=== PATIENT | male | born 1945 | race Caucasian/White ===

== ENCOUNTER 2020-10-05 19:58 | IRF | payer MEDICARE, SELFPAY ==
--- NOTE | ~2020-10-05 | XR_ITS ---
EXAMINATION: XR chest 1V portable DATE: 10/06/2020 06:00 INDICATION: Rib fracture TECHNIQUE: frontal view of the chest was obtained. COMPARISON: None FINDINGS: Plain screw fixations along the posterior right fourth-ninth ribs. Unfixed old posterior right third rib fracture. Linear discoid atelectasis at the left lung base. Diffuse hazy airspace opacities throu ghout the right lung with additional more bandlike right basilar atelectasis. No pneumothorax or left pleural effusion. Heart size is normal. Calcified left hilar lymph nodes consistent with old granulo matous disease. IMPRESSION: 1. Asymmetric hazy airspace opacity throughout the right lung with differential including small left pleural effusion, atelectasis or pneumonia. 2. Streaky and bandlike bibasilar atelectasis. 3. Multiple old posterior right rib fractures, the majority with plate and screw fixations. Reviewed, dictated and finalized at location A. IMPRESSION: 1. Asymmetric hazy airspace opacity throughout the right lung with differential including small left pleural effusion, atelectasis or pneumonia. 2. Streaky and bandlike bibasilar atelectasis. 3. Multiple old posterior right rib fractures, the majority with plate and scre w fixations.
[2020-10-05 19:48] VITALS: BP 121/74; PULSE 97; RESP 24; TEMP 37.3; O2SAT 97; BMI 34.8
--- NOTE | 2020-10-05 20:06 | ADMGEN ---
Arrived to floor via ambulance at 1948. This patient, Jose Pinto, was admitted to [facility] Room 225-02. Patient/family oriented to hospital policies and general routines including ID bracelet, bed and alarms, visiting hours, pain management, procedures, bathroom and other care routines, personal items, smoking policy, room service/diet, and visiting hours. Information on how to activate the Rapid Response Team has been discussed. Patient/Family are encouraged to report perceived risks to care and to ask questions if they do not understand what they are told or what they should do.
[2020-10-05 20:10] VITALS: BMI 34.3
[2020-10-05 21:52] VITALS: BP 131/74; PULSE 87; RESP 20; TEMP 37.6; O2SAT 96
[2020-10-06] MEDS: ACETAMINOPHEN 500 MG TABLET 1000 MG PO ×5 (00:32→23:42)
[2020-10-06 06:00] VITALS: BP 141/76; PULSE 80; RESP 18; TEMP 36.6; O2SAT 95
[2020-10-06 06:08] LABS: Basophils Absolute Auto 0.1 K/mm3 (0.0-0.1); Basophils Percent Auto 1.6 % (0.2-1.2); Eosinophils Absolute Auto 0.1 K/mm3 (0-0.3); Eosinophils Percent Auto 2.4 % (0-4.4); Hematocrit 28.9 % (42.0-52.0); Hemoglobin 9.2 g/dL (14.0-18.0); Immature Granulocyte Absolute 0.04 K/mm3 (0.00-0.031); Immature Granulocyte Percent A 0.7 % (0-0.5); Lymphocytes Absolute Auto 1.78 K/mm3 (0.9-3.2); Mean Corpuscular HGB Conc 31.8 g/dl (32-36); Mean Corpuscular Hemoglobin 30.1 pg (26-34); Mean Corpuscular Volume 94.4 fl (80-100); Mean Platelet Volume 10.1 fl (7.4-10.4); Monocytes Absolute Auto 0.7 K/mm3 (0.1-0.6); Monocytes Percent Auto 12.9 % (2.6-8.5); Neutrophils Percent Auto 51.4 % (45.5-73.1); Platelet Count Result 237 k/mm3 (150-375); Red Blood Count 3.06 M/mm3 (4.6-6.20); Red Cell Distribution Width 15.5 % (11.5-14.5); White Blood Count 5.8 K/mm3 (4.5-10.0)
[2020-10-06 06:21] LABS: Alanine Aminotransferase 19 U/L (4-50); Albumin Level 3.2 g/dL (3.5-5.1); Alkaline Phosphatase 116 U/L (38-126); Anion Gap 7 mmol/L (8-16); Aspartate Amino Transferase 24 U/L (17-59); Bilirubin,Total 0.3 mg/dL (0.2-1.3); Blood Urea Nitrogen 10 mg/dL (9-20); Calcium 9.3 mg/dL (8.4-10.2); Carbon Dioxide 29 mmol/L (22-30); Chloride 99 mmol/L (98-107); Estimated CRCL calculation 84 ml/min; Estimated Glomerular Filt Rate > 60; Glucose 105 mg/dL (75-110); Potassium 3.7 mmol/L (3.4-5.0); Sodium 135 mmol/L (137-145)
[2020-10-06 08:00] VITALS: PULSE 80; RESP 18; O2SAT 95
--- NOTE | 2020-10-06 08:59 | WPDREHABHP ---
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 Patient was up in the attic and was coming down when he missed a rung on the ladder that was present and fell on another ladder lying on the floor. Patient denies any loss of consciousness or striking his head. Patient was brought to [facility] and found to have multiple rib side fractures and a right hemothorax. Patient was transferred to [facility] the same day for further management. Imaging demonstrated acute fractures of the right 3 through 11 ribs, segmental at the 3rd and 6th through 11th ribs, right lower lobe pulmonary contusions, small pulmonary laceration involving the posterior medial right lower lobe and small right hemo thorax. Hospital [facility] Course: PULMONARY patient underwent on 09/26 ORIF of ribs 5 through 10, VATS procedure, right lung decortication, chest tube placement, intubation, aggressive pulmonary toileting. Patient continued to have a small right pleural effusion on repeat chest x-rays. Patient was able to perform 1 L of incentive spirometry on a regular basis. Patient will follow up with trauma nurse practitioner clinic with chest x-ray in approximately 2 weeks. GI: ILEUS: TX: NG tube placement with resolution and Regular diet. BACTEREMIA: blood cx E coli. 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 Patient was started on Lovenox on 10/02/2020 for 3 months. ACUTE DELIRIUM: HEAD CT showed no acute intracranial abnormality. Patient with sleep deprivation and was placed on Seroquel and ramelteon. ACUTE PAIN: Lidocaine patches, Oxycodone, URINARY RETENTION: Sims catheter was removed and patient had issues with urination hesitancy and retention. Patient was placed on Flomax COVID: The patient has not traveled outside the [place] are had contact with someone who is ill that has traveled outside the [place] in the past 21 days. Patient has not traveled to an area of the [place] that is experiencing no transmission of the Coronavirus and has not had close personal contact with anyone with COVID. Patient does not have a fever nor experiencing lower respiratory illness. Patient received a negative COVID test on 10/05/2020. FALLS The patient reports 1 fall from a ladder prompting this admission. Patient underwent rib plating VATS procedure and lung decortication. Therapy was initiated at the acute care facility and the patient transferred to us from [facility] on 10/05/2020 PRIOR LEVEL OF FUNCTION: Eating was [INDEPENDENT] Oral Care was [INDEPENDENT] Toileting Hygiene was [INDEPENDENT] Shower/Bathing was [INDEPENDENT] Upper Body Dressing was [INDEPENDENT] Lower Body Dressing was [INDEPENDENT] Donning/[place] Footwear was [INDEPENDENT] Rolling Left and Right was [INDEPENDENT] Sit to Lying was [INDEPENDENT] Lying to Sitting was [INDEPENDENT] Sit to Stand was [INDEPENDENT] Bed to Chair Transfers was [INDEPENDENT] Toilet Transfers was [INDEPENDENT] Walking was [INDEPENDENT] [>500 feet] with [NO DEVICE] Wheelchair Mobility was [NOT APPLICABLE PRIOR TO ADMISSION] Stairs were [INDEPENDENT] CURRENT LEVEL OF FUNCTION: Eating was SETUP Oral Care was PARTIAL TO MOD ASSIST Toileting Hygiene was PARTIAL TO MOD ASSIST Shower/Bathing was PARTIAL TO MOD ASSIST Upper
[2020-10-06] MEDS: hydroCHLOROthiazide 25 MG TABLET PO (10:18)
[2020-10-06] MEDS: ASPIRIN 325 MG TABLET PO (10:18)
[2020-10-06] MEDS: PANTOPRAZOLE 40 MG TABLET PO (10:19)
[2020-10-06] MEDS: lisinopriL 20 MG TABLET 40 MG PO (10:19)
[2020-10-06] MEDS: DICLOFENAC SOD 75 MG TABLET.EC PO (10:19)
[2020-10-06] MEDS: THERAPEUTIC MULTIVITAMINS/MINERALS TAB (*BKC) 1 TABLET PO (10:19)
[2020-10-06] MEDS: ENOXAPARIN 100 MG/ML SYRINGE 90 MG SUB-Q ×2 (10:20→20:42)
[2020-10-06] MEDS: SENNA/DOCUSATE SODIUM TABLET 1 TAB PO ×2 (10:21→17:09)
[2020-10-06] MEDS: LIDOCAINE 5% PATCH 3 PATCH TOPICAL (10:21)
[2020-10-06 12:51] VITALS: BMI 34.3
[2020-10-06 14:00] VITALS: BP 143/71; PULSE 84; RESP 20; TEMP 36.7; O2SAT 98
--- NOTE | 2020-10-06 14:19 | RPD ---
INDIVIDUALIZED PLAN OF CARE FOR Jose Pinto Brief Synthesis of Pre-Admission Screen, Post-Admission Evaluation and Therapy Evaluations: The patient presents to rehab with multiple right-sided rib fractures, pulmonary contusion, lung laceration, and right hemothorax status post ORIF of the ribs, VATS, and lung decortication. Comorbidities include acute pain, hypertension, left forearm laceration, penile swelling, GNR bacteremia, hyperlipidemia, and TORREZ. The complexity of the patient's medical management, nursing, and therapy needs require an inpatient rehab hospital stay with a physician-led interdisciplinary team approach. The patient?s needs will be best met in an intensive program vs. at a lower level of care. The patient requires physician services for medical oversight, management of post-op complications (ileus, bacteremia, acute delirium, hypertension, hyperlipidemia, TORREZ) in setting of present comorbidities, and pain management. The patient requires nursing services for anticoagulation therapy, diabetes training, DVT prophylactics, possible IV administration, infection protection, medication management and education, pressure relief, and wound care. Skilled physical and occupational therapy will address ADL training, precaution and safety education, functional mobility, DME education, strengthening, balance, endurance, energy conservation/work simplification training, and family training. Deficits include: ADLs, Balance, Endurance, Family Training/Education, Mobility, Pain Management, ROM, Safety, Strength, and Transfers. Baling Machine Operator/Case Management for: Discharge Planning and Patient/Family Counseling Physical Therapy: 5 days per week for 90 minutes. Treatments may include: Therapeutic Exercise, Gait Training, Neuromuscular Re-education, Transfer Training, Community Reintegration, Bed Mobility, Patient/Family Education, Wheelchair Mobility Group Therapy/Concurrent Therapy Rationales: -Improve attention span during functional activities in a distracted environment. -Enhance problem solving and/or adequate judgment skills during functional activities in a distracted environment. -Promote increased safety awareness in a distracted environment to reduce fall risk with functional tasks, transfers, and ambulation to allow a more safe, self-sufficient return to the home environment. -Improve dynamic balance skills to promote safety and independence with functional activities in a distracted environment for maximum gain. Occupational Therapy: 5 days per week for 90 minutes. Treatments may include: Therapeutic Exercise, Therapeutic Activity, Cognitive Training, Self-Care Transfer Training, Community Reintegration, Home Management, Patient/Family Education, Wheelchair Mobility Training, Energy Conservation Training Group Therapy/Concurrent Therapy Rationales: -Allow therapist to observe and teach generalization and carry-over of skills learned in individual therapy. -Enhance problem solving and sequencing skills during therapeutic activities in a distracted environment. -Promote increased safety awareness in a realistic setting to reduce fall risk with functional tasks due to visual and verbal distractions. -Increase functional level with ADLs, ADL transfers and use of adaptive equipment through therapeutic activities with others while promoting safety to allow a more safe, self-sufficient return home. Medical Prognosis: Good Anticipated Length of Stay: 14 days Rehab Goals: Eating Goal: 06-Independent Oral Hygiene Goal: 06-Independent Toileting Hygiene Goal: 06-Independent Shower/Bathe Self Goal: 06-Independent Upper Body Dressing Goal: 06-Independent Lower Body Dressing Goal: 06-Independent Putting On/Taking Off Footwear Goal: 06-Independent Rolling Left and Right Goal: 06-Independent Sit to Lying Goal: 06-Independent Lying to Sitting on Side of Bed Goal: 06-Independent Sit to Stand Goal: 06-Independent Chair/[id number] Transfer Goal: 06-Indepen
[2020-10-06] MEDS: TAMSULOSIN HCL 0.4 MG CAPSULE PO (17:08)
--- NOTE | 2020-10-06 19:28 | PC.NURSE ---
No open areas noted to buttocks, just redness, mepilex border applied for comfort. continue to monitor.
[2020-10-06] MEDS: MELATONIN 3 MG TABLET PO (20:41)
[2020-10-06 21:06] VITALS: BP 110/60; PULSE 81; RESP 16; TEMP 36.4; O2SAT 98
[2020-10-06 21:54] VITALS: BP 116/66
[2020-10-07] MEDS: ACETAMINOPHEN 500 MG TABLET 1000 MG PO ×4 (05:44→23:25)
[2020-10-07 06:00] VITALS: BP 117/65; PULSE 78; RESP 16; TEMP 36.2; O2SAT 97
[2020-10-07] MEDS: LIDOCAINE 5% PATCH 3 PATCH TOPICAL (09:34)
[2020-10-07] MEDS: ENOXAPARIN 100 MG/ML SYRINGE 90 MG SUB-Q ×2 (09:35→21:22)
[2020-10-07] MEDS: ASPIRIN 325 MG TABLET PO (09:35)
[2020-10-07] MEDS: THERAPEUTIC MULTIVITAMINS/MINERALS TAB (*BKC) 1 TABLET PO (09:36)
[2020-10-07] MEDS: hydroCHLOROthiazide 25 MG TABLET PO (09:36)
[2020-10-07] MEDS: lisinopriL 20 MG TABLET 40 MG PO (09:36)
[2020-10-07] MEDS: SENNA/DOCUSATE SODIUM TABLET 1 TAB PO ×2 (09:36→18:21)
[2020-10-07] MEDS: PANTOPRAZOLE 40 MG TABLET PO (09:36)
--- NOTE | 2020-10-07 10:52 | WPDNEURORHBP ---
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 Patient was up in the attic and was coming down when he missed a rung on the ladder that was present and fell on another ladder lying on the floor. Patient denies any loss of consciousness or striking his head. Patient was brought to [facility] and found to have multiple rib side fractures and a right hemothorax. Patient was transferred to [facility] the same day for further management. Imaging demonstrated acute fractures of the right 3 through 11 ribs, segmental at the 3rd and 6th through 11th ribs, right lower lobe pulmonary contusions, small pulmonary laceration involving the posterior medial right lower lobe and small right hemo thorax. Hospital [facility] Course: PULMONARY patient underwent on 09/26 ORIF of ribs 5 through 10, VATS procedure, right lung decortication, chest tube placement, intubation, aggressive pulmonary toileting. Patient continued to have a small right pleural effusion on repeat chest x-rays. Patient was able to perform 1 L of incentive spirometry on a regular basis. Patient will follow up with trauma nurse practitioner clinic with chest x-ray in approximately 2 weeks. GI: ILEUS: TX: NG tube placement with resolution and Regular diet. BACTEREMIA: blood cx E coli. 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 Patient was started on Lovenox on 10/02/2020 for 3 months. ACUTE DELIRIUM: HEAD CT showed no acute intracranial abnormality. Patient with sleep deprivation and was placed on Seroquel and ramelteon. ACUTE PAIN: Lidocaine patches, Oxycodone, URINARY RETENTION: Sims catheter was removed and patient had issues with urination hesitancy and retention. Patient was placed on Flomax Therapy was initiated at the acute care facility and the patient transferred to us from [facility] on 10/05/2020 patient complains of pain to left back and left leg that resolved over time. Patient complained of minimal right chest pain. Patient stated sleeping was fair Review of Systems Review of Systems: All systems reviewed & are unremarkable except as noted in HPI and below Functional Status Ambulation Ability Ability to Ambulate 10 Feet: Standby Assistance Ability to Ambulate 50 Feet With 2 Turns: Contact Guard Ability to Ambulate 150 Feet: Contact Guard Ambulation Assistive Devices: Walker, Wheeled Transfers Ability Ability to Transfer In/Out of Chair: Standby Assistance Exam Narrative: Exam Narrative: patient is in no acute distress. Patient is resting comfortably. Head is normocephalic. Extraocular muscles are intact. Speech is fluent. Heart rate and rhythm is regular. Lungs are decreased in the right base. Right chest wall reveals marked and significant bruising with numerous incisions and puncture wounds from surgeries. Abdomen is obese. Bilateral upper extremity strength are 4+ out of 5 bilateral lower extremity strength are 4+ out of 5. Deep tendon reflexes are equal bilaterally being 2/4. Sensation is intact to upper and lower extremities. Patient with limited endurance compounded by pain. Objective Data Vital Signs Vital Signs: Vital Signs - 24 hr 10/06/20 14:00 10/06/20 21:06 10/06/20 21:54 Temperature 36.7 C 36.4 C L Pulse Rate 84 81 Respiratory Rate 20 16 Blood Pressure 143/71 H 110/60 116/66 Pulse Oximetry 98 98 10/07/20 06:00 Temperature 36.2 C L Pulse
[2020-10-07 14:00] VITALS: BP 103/59; PULSE 78; RESP 20; TEMP 36.5; O2SAT 99
[2020-10-07] MEDS: TAMSULOSIN HCL 0.4 MG CAPSULE PO (18:21)
[2020-10-07] MEDS: MELATONIN 3 MG TABLET PO (21:22)
[2020-10-07 21:34] VITALS: BP 118/64; PULSE 82; RESP 16; TEMP 36.8; O2SAT 96
[2020-10-08] MEDS: ACETAMINOPHEN 500 MG TABLET 1000 MG PO ×3 (05:36→17:33)
[2020-10-08 06:00] VITALS: BP 110/74; PULSE 94; RESP 16; TEMP 36.1; O2SAT 98
[2020-10-08] MEDS: ENOXAPARIN 100 MG/ML SYRINGE 90 MG SUB-Q ×2 (09:58→21:20)
[2020-10-08] MEDS: LIDOCAINE 5% PATCH 3 PATCH TOPICAL (09:58)
[2020-10-08] MEDS: SENNA/DOCUSATE SODIUM TABLET 1 TAB PO ×2 (09:58→17:34)
[2020-10-08] MEDS: ASPIRIN 325 MG TABLET PO (09:58)
[2020-10-08] MEDS: PANTOPRAZOLE 40 MG TABLET PO (09:59)
[2020-10-08] MEDS: hydroCHLOROthiazide 25 MG TABLET PO (09:59)
[2020-10-08] MEDS: THERAPEUTIC MULTIVITAMINS/MINERALS TAB (*BKC) 1 TABLET PO (09:59)
[2020-10-08] MEDS: lisinopriL 20 MG TABLET 40 MG PO (09:59)
--- NOTE | 2020-10-08 10:46 | PCPTNOTE ---
Jose Pinto was evaluated for a wheeled walker on 10/08/2020 by this physical therapist assistant offset press operator. The wheeled walker will resolve patient's mobility limitations and will be used for ADL's within the home. The patient can safely use the wheeled walker. ?The wheeled walker will resolve the patient?s mobility deficits, including decreased strength, decreased balance, decreased endurance. Autumn Jackson, SPA DIRECTOR/FINANCE
[2020-10-08 14:00] VITALS: PULSE 88; RESP 20; TEMP 36.3; O2SAT 96
[2020-10-08 14:47] VITALS: BP 108/58
[2020-10-08] MEDS: TAMSULOSIN HCL 0.4 MG CAPSULE PO (17:34)
--- NOTE | 2020-10-08 17:36 | WPDNEURORHBP ---
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 Patient was up in the attic and was coming down when he missed a rung on the ladder that was present and fell on another ladder lying on the floor. Patient denies any loss of consciousness or striking his head. Patient was brought to [facility] and found to have multiple rib side fractures and a right hemothorax. Patient was transferred to [facility] the same day for further management. Imaging demonstrated acute fractures of the right 3 through 11 ribs, segmental at the 3rd and 6th through 11th ribs, right lower lobe pulmonary contusions, small pulmonary laceration involving the posterior medial right lower lobe and small right hemo thorax. [facility] Course: PULMONARY patient underwent on 09/26 ORIF of ribs 5 through 10, VATS procedure, right lung decortication, chest tube placement, intubation, aggressive pulmonary toileting. Patient continued to have a small right pleural effusion on repeat chest x-rays. Patient was able to perform 1 L of incentive spirometry on a regular basis. Patient will follow up with trauma nurse practitioner clinic with chest x-ray in approximately 2 weeks. GI: ILEUS: TX: NG tube placement with resolution and Regular diet. BACTEREMIA: blood cx E coli. 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 Patient was started on Lovenox on 10/02/2020 for 3 months. ACUTE DELIRIUM: HEAD CT showed no acute intracranial abnormality. Patient with sleep deprivation and was placed on Seroquel and ramelteon. ACUTE PAIN: Lidocaine patches, Oxycodone, URINARY RETENTION: Sims catheter was removed and patient had issues with urination hesitancy and retention. Patient was placed on Flomax Patient without complaints. Review of Systems Review of Systems: All systems reviewed & are unremarkable except as noted in HPI and below Functional Status Ambulation Ability Ability to Ambulate 10 Feet: Independent Ability to Ambulate 50 Feet With 2 Turns: Independent Ability to Ambulate 150 Feet: Independent Ambulation Assistive Devices: Walker, Wheeled Transfers Ability Ability to Transfer In/Out of Chair: Standby Assistance Exam Narrative: Exam Narrative: patient is in no acute distress. Patient is resting comfortably. Head is normocephalic. Extraocular muscles are intact. Speech is fluent. Heart rate and rhythm is regular. Lungs are decreased in the right base. Right chest wall reveals marked and significant bruising with numerous incisions and puncture wounds from surgeries.One area is draining serosanguineous fluid Abdomen is obese. Bilateral upper extremity strength are 4+ out of 5 bilateral lower extremity strength are 4+ out of 5. Deep tendon reflexes are equal bilaterally being 2/4. Sensation is intact to upper and lower extremities. Patient with limited endurance compounded by pain. Objective Data Vital Signs Vital Signs: Vital Signs - 24 hr 10/07/20 21:34 10/08/20 06:00 10/08/20 14:00 Temperature 36.8 C 36.1 C L 36.3 C L Pulse Rate 82 94 88 Respiratory Rate 16 16 20 Blood Pressure 118/64 110/74 Pulse Oximetry 96 98 96 10/08/20 14:47 Temperature Pulse Rate Respiratory Rate Blood Pressure 108/58 L Pulse Oximetry Intake/Output Intake/Output: Intake & Output 10/05/20 10/06/20 10/07/20 10/08/20 23:59 23:59 23:59 23:59 Intake Total 720 840 480 Balance 720 840 480 Meds/Results Medications: Active Medications Generic Name Dose Route Start Last Admin Trade Name Freq PRN Reason Stop Dose Admin Acetaminophen
[2020-10-08] MEDS: MELATONIN 3 MG TABLET PO (21:20)
[2020-10-08 22:00] VITALS: BP 111/62; PULSE 81; RESP 16; TEMP 36.6; O2SAT 96
[2020-10-09 06:00] VITALS: BP 146/75; PULSE 89; RESP 16; TEMP 36.2; O2SAT 97
[2020-10-09] MEDS: ACETAMINOPHEN 500 MG TABLET 1000 MG PO ×5 (06:09→23:35)
[2020-10-09] MEDS: PANTOPRAZOLE 40 MG TABLET PO (09:00)
[2020-10-09] MEDS: LIDOCAINE 5% PATCH 3 PATCH TOPICAL (09:00)
[2020-10-09] MEDS: SENNA/DOCUSATE SODIUM TABLET 1 TAB PO ×2 (09:00→17:59)
[2020-10-09] MEDS: hydroCHLOROthiazide 25 MG TABLET PO (09:00)
[2020-10-09] MEDS: THERAPEUTIC MULTIVITAMINS/MINERALS TAB (*BKC) 1 TABLET PO (09:00)
[2020-10-09] MEDS: lisinopriL 20 MG TABLET 40 MG PO (09:00)
[2020-10-09] MEDS: ASPIRIN 325 MG TABLET PO (09:00)
[2020-10-09] MEDS: ENOXAPARIN 100 MG/ML SYRINGE 90 MG SUB-Q ×2 (09:00→21:11)
--- NOTE | 2020-10-09 09:18 | WPDNEURORHBP ---
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 Patient was up in the attic and was coming down when he missed a rung on the ladder that was present and fell on another ladder lying on the floor. Patient denies any loss of consciousness or striking his head. Patient was brought to [facility] and found to have multiple rib side fractures and a right hemothorax. Patient was transferred to [facility] the same day for further management. Imaging demonstrated acute fractures of the right 3 through 11 ribs, segmental at the 3rd and 6th through 11th ribs, right lower lobe pulmonary contusions, small pulmonary laceration involving the posterior medial right lower lobe and small right hemo thorax. Hospital [facility] Course: PULMONARY patient underwent on 09/26 ORIF of ribs 5 through 10, VATS procedure, right lung decortication, chest tube placement, intubation, aggressive pulmonary toileting. Patient continued to have a small right pleural effusion on repeat chest x-rays. Patient was able to perform 1 L of incentive spirometry on a regular basis. Patient will follow up with trauma nurse practitioner clinic with chest x-ray in approximately 2 weeks. GI: ILEUS: TX: NG tube placement with resolution and Regular diet. BACTEREMIA: blood cx E coli. 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 Patient was started on Lovenox on 10/02/2020 for 3 months. ACUTE DELIRIUM: HEAD CT showed no acute intracranial abnormality. Patient with sleep deprivation and was placed on Seroquel and ramelteon. ACUTE PAIN: Lidocaine patches, Oxycodone, URINARY RETENTION: Sims catheter was removed and patient had issues with urination hesitancy and retention. Patient was placed on Flomax REHAB HOSPITAL COURSE: patient is doing well. Patient still complains of sacral pain. Mepilex has been added. Patient reminded to use incentive spirometry every 2 hours while awake Review of Systems Review of Systems: All systems reviewed & are unremarkable except as noted in HPI and below Functional Status Ambulation Ability Ability to Ambulate 10 Feet: Independent Ability to Ambulate 50 Feet With 2 Turns: Independent Ability to Ambulate 150 Feet: Independent Ambulation Assistive Devices: Walker, Wheeled Transfers Ability Ability to Transfer In/Out of Chair: Standby Assistance Exam Narrative: Exam Narrative: patient is in no acute distress. Patient is resting comfortably. Head is normocephalic. Extraocular muscles are intact. Speech is fluent. Heart rate and rhythm is regular. Lungs are decreased in the right base. Right chest wall reveals marked and significant bruising with numerous incisions and puncture wounds from surgeries.One area is draining serosanguineous fluid Abdomen is obese. Bilateral upper extremity strength are 4+ out of 5 bilateral lower extremity strength are 4+ out of 5. Deep tendon reflexes are equal bilaterally being 2/4. Sensation is intact to upper and lower extremities. Patient with limited endurance compounded by pain. Sacral redness is resolving . No pain on exam. Incisions and drain sites on chest healing. No drainage. Objective Data Vital Signs Vital Signs: Vital Signs - 24 hr 10/08/20 14:00 10/08/20 14:47 10/08/20 22:00 Temperature 36.3 C L 36.6 C Pulse Rate 88 81 Respiratory Rate 20 16 Blood Pressure 108/58 L 111/62 Pulse Oximetry 96 96 10/09/20 06:00 Temperature 36.2 C L Pulse Rate 89 Respiratory Rate 16 Blood Pressure 146/75 H Pulse Oximetry 97 Intake/Output Intake/Output: Intake &
[2020-10-09 14:00] VITALS: BP 104/59; PULSE 81; RESP 18; TEMP 36.5; O2SAT 97
[2020-10-09] MEDS: TAMSULOSIN HCL 0.4 MG CAPSULE PO (17:59)
[2020-10-09] MEDS: MELATONIN 5 MG TABLET PO (21:11)
[2020-10-09 21:49] VITALS: BP 126/71; PULSE 87; RESP 18; TEMP 36.6; O2SAT 97
[2020-10-10 05:54] VITALS: BP 126/66; PULSE 80; RESP 16; TEMP 36.2; O2SAT 96
[2020-10-10] MEDS: ACETAMINOPHEN 500 MG TABLET 1000 MG PO ×4 (06:06→23:18)
--- NOTE | 2020-10-10 07:52 | WPDNEURORHBP ---
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 Patient was up in the attic and was coming down when he missed a rung on the ladder that was present and fell on another ladder lying on the floor. Patient denies any loss of consciousness or striking his head. Patient was brought to [facility] and found to have multiple rib side fractures and a right hemothorax. Patient was transferred to [facility] the same day for further management. Imaging demonstrated acute fractures of the right 3 through 11 ribs, segmental at the 3rd and 6th through 11th ribs, right lower lobe pulmonary contusions, small pulmonary laceration involving the posterior medial right lower lobe and small right hemo thorax. [facility] Course: PULMONARY patient underwent on 09/26 ORIF of ribs 5 through 10, VATS procedure, right lung decortication, chest tube placement, intubation, aggressive pulmonary toileting. Patient continued to have a small right pleural effusion on repeat chest x-rays. Patient was able to perform 1 L of incentive spirometry on a regular basis. Patient will follow up with trauma nurse practitioner clinic with chest x-ray in approximately 2 weeks. GI: ILEUS: TX: NG tube placement with resolution and Regular diet. BACTEREMIA: blood cx E coli. 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 Patient was started on Lovenox on 10/02/2020 for 3 months. ACUTE DELIRIUM: HEAD CT showed no acute intracranial abnormality. Patient with sleep deprivation and was placed on Seroquel and ramelteon. ACUTE PAIN: Lidocaine patches, Oxycodone, URINARY RETENTION: Sims catheter was removed and patient had issues with urination hesitancy and retention. Patient was placed on Flomax [facility] COURSE: patient is doing well. Patient still complains of insomnia. Will discontinue Melatonin and add Ambien low dose. Patient reminded to use incentive spirometry every 2 hours while awake Review of Systems Review of Systems: All systems reviewed & are unremarkable except as noted in HPI and below Functional Status Ambulation Ability Ability to Ambulate 10 Feet: Independent Ability to Ambulate 50 Feet With 2 Turns: Independent Ability to Ambulate 150 Feet: Independent Ambulation Assistive Devices: Walker, Wheeled Transfers Ability Ability to Transfer In/Out of Chair: Standby Assistance Exam Narrative: Exam Narrative: patient is in no acute distress. Patient is resting comfortably. Head is normocephalic. Extraocular muscles are intact. Speech is fluent. Heart rate and rhythm is regular. Lungs are decreased in the right base. Right chest wall reveals marked and significant bruising with numerous incisions and puncture wounds from surgeries.One area is draining serosanguineous fluid Abdomen is obese. Bilateral upper extremity strength are 4+ out of 5 bilateral lower extremity strength are 4+ out of 5. Deep tendon reflexes are equal bilaterally being 2/4. Sensation is intact to upper and lower extremities. Patient with limited endurance compounded by pain. Sacral redness is resolving . No pain on exam. Incisions and drain sites on chest healing. No drainage. Objective Data Vital Signs Vital Signs: Vital Signs - 24 hr 10/09/20 14:00 10/09/20 21:49 10/10/20 05:54 Temperature 36.5 C 36.6 C 36.2 C L Pulse Rate 81 87 80 Respiratory Rate 18 18 16 Blood Pressure 104/59 L 126/71 126/66 Pulse Oximetry 97 97 96 Intake/Output Intake/Output: Intake & Output 10/07/20 10/08/20 10/09/20 10/10/20 23:59 23:59 23:59 23:59 In
[2020-10-10] MEDS: ENOXAPARIN 100 MG/ML SYRINGE 90 MG SUB-Q ×2 (09:24→21:57)
[2020-10-10] MEDS: ASPIRIN 325 MG TABLET PO (09:24)
[2020-10-10] MEDS: hydroCHLOROthiazide 25 MG TABLET PO (09:25)
[2020-10-10] MEDS: LIDOCAINE 5% PATCH 3 PATCH TOPICAL (09:25)
[2020-10-10] MEDS: lisinopriL 20 MG TABLET 40 MG PO (09:25)
[2020-10-10] MEDS: THERAPEUTIC MULTIVITAMINS/MINERALS TAB (*BKC) 1 TABLET PO (09:26)
[2020-10-10] MEDS: PANTOPRAZOLE 40 MG TABLET PO (09:26)
[2020-10-10 13:57] VITALS: BP 104/49; PULSE 77; RESP 18; TEMP 36.3; O2SAT 98
[2020-10-10] MEDS: DICLOFENAC SOD 75 MG TABLET.EC PO (15:13)
[2020-10-10] MEDS: TAMSULOSIN HCL 0.4 MG CAPSULE PO (17:39)
[2020-10-10 21:38] VITALS: BP 108/64; PULSE 83; RESP 16; TEMP 36.5; O2SAT 97
[2020-10-10] MEDS: ZOLPIDEM TARTRATE (*CRX) 2.5 MG TABLET PO (21:57)
[2020-10-11 06:00] VITALS: BP 136/86; PULSE 91; RESP 16; TEMP 36.4; O2SAT 98
[2020-10-11] MEDS: ACETAMINOPHEN 500 MG TABLET 1000 MG PO ×4 (06:09→23:33)
[2020-10-11] MEDS: LIDOCAINE 5% PATCH 3 PATCH TOPICAL (08:13)
[2020-10-11] MEDS: lisinopriL 20 MG TABLET 40 MG PO (08:14)
[2020-10-11] MEDS: THERAPEUTIC MULTIVITAMINS/MINERALS TAB (*BKC) 1 TABLET PO (08:14)
[2020-10-11] MEDS: ASPIRIN 325 MG TABLET PO (08:14)
[2020-10-11] MEDS: PANTOPRAZOLE 40 MG TABLET PO (08:14)
[2020-10-11] MEDS: hydroCHLOROthiazide 25 MG TABLET PO (08:14)
[2020-10-11] MEDS: ENOXAPARIN 100 MG/ML SYRINGE 90 MG SUB-Q (08:15)
[2020-10-11] MEDS: DICLOFENAC SOD 75 MG TABLET.EC PO (08:16)
--- NOTE | 2020-10-11 09:16 | WPDNEURORHBP ---
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 Patient was up in the attic and was coming down when he missed a rung on the ladder that was present and fell on another ladder lying on the floor. Patient denies any loss of consciousness or striking his head. Patient was brought to [facility] and found to have multiple rib side fractures and a right hemothorax. Patient was transferred to [facility] the same day for further management. Imaging demonstrated acute fractures of the right 3 through 11 ribs, segmental at the 3rd and 6th through 11th ribs, right lower lobe pulmonary contusions, small pulmonary laceration involving the posterior medial right lower lobe and small right hemo thorax. Hospital [facility] Course: PULMONARY patient underwent on 09/26 ORIF of ribs 5 through 10, VATS procedure, right lung decortication, chest tube placement, intubation, aggressive pulmonary toileting. Patient continued to have a small right pleural effusion on repeat chest x-rays. Patient was able to perform 1 L of incentive spirometry on a regular basis. Patient will follow up with trauma nurse practitioner clinic with chest x-ray in approximately 2 weeks. GI: ILEUS: TX: NG tube placement with resolution and Regular diet. BACTEREMIA: blood cx E coli. 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 Patient was started on Lovenox on 10/02/2020 for 3 months. ACUTE DELIRIUM: HEAD CT showed no acute intracranial abnormality. Patient with sleep deprivation and was placed on Seroquel and ramelteon. ACUTE PAIN: Lidocaine patches, Oxycodone, URINARY RETENTION: Sims catheter was removed and patient had issues with urination hesitancy and retention. Patient was placed on Flomax [facility]PITAL COURSE: patient is doing well. Patient still complains of insomnia. Will discontinue Melatonin and add Ambien low dose. Patient reminded to use incentive spirometry every 2 hours while awake 10/11/20 Patient slept better on Ambien low dose. He would like to increase the dose for tonight. Patient is doing better with all therapies. Consider discharge soon Review of Systems Review of Systems: All systems reviewed & are unremarkable except as noted in HPI and below Functional Status Ambulation Ability Ability to Ambulate 10 Feet: Independent Ability to Ambulate 50 Feet With 2 Turns: Independent Ability to Ambulate 150 Feet: Independent Ambulation Assistive Devices: Walker, Wheeled Transfers Ability Ability to Transfer In/Out of Chair: Independent Exam Narrative: Exam Narrative: patient is in no acute distress. P Head is normocephalic. Extraocular muscles are intact. Speech is fluent. Heart rate and rhythm is regular. Lungs are decreased in the right base. Abdomen is obese. Bilateral upper extremity strength are 4+ out of 5 bilateral lower extremity strength are 4+ out of 5. Deep tendon reflexes are equal bilaterally being 2/4. Sensation is intact to upper and lower extremities. Patient with limited endurance compounded by pain. Sacral redness is resolving . Incisions and drain sites on chest healing. No drainage. Objective Data Vital Signs Vital Signs: Vital Signs - 24 hr 10/10/20 13:57 10/10/20 21:38 10/11/20 06:00 Temperature 36.3 C L 36.5 C 36.4 C L Pulse Rate 77 83 91 Respiratory Rate 18 16 16 Blood Pressure 104/49 L 108/64 136/86 Pulse Oximetry 98 97 98 Intake/Output Intake/Output: Intake & Output 10/08/20 10/09/20 10/10/20 10/11/20 23:59 23:59 23:59 23:59 Intake Total 720 720 720 360 Balance 720 720 720 3
[2020-10-11 14:00] VITALS: BP 96/55; PULSE 86; RESP 20; TEMP 36.5; O2SAT 97
[2020-10-11] MEDS: TAMSULOSIN HCL 0.4 MG CAPSULE PO (17:21)
[2020-10-11] MEDS: APIXABAN 5 MG TABLET PO (20:54)
[2020-10-11] MEDS: ZOLPIDEM TARTRATE (*CRX) 5 MG TABLET PO (20:55)
[2020-10-11 22:00] VITALS: BP 136/75; PULSE 80; RESP 18; TEMP 36.3; O2SAT 97
[2020-10-12] MEDS: ACETAMINOPHEN 500 MG TABLET 1000 MG PO ×4 (05:29→23:38)
[2020-10-12 06:00] VITALS: BP 128/74; PULSE 85; RESP 18; TEMP 36.2; O2SAT 97
[2020-10-12] MEDS: lisinopriL 20 MG TABLET 40 MG PO (09:00)
[2020-10-12] MEDS: ASPIRIN 81 MG CHEWABLE TABLET PO (09:00)
[2020-10-12] MEDS: THERAPEUTIC MULTIVITAMINS/MINERALS TAB (*BKC) 1 TABLET PO (09:00)
[2020-10-12] MEDS: LIDOCAINE 5% PATCH 3 PATCH TOPICAL (09:00)
[2020-10-12] MEDS: hydroCHLOROthiazide 25 MG TABLET PO (09:00)
[2020-10-12] MEDS: PANTOPRAZOLE 40 MG TABLET PO (09:00)
[2020-10-12] MEDS: APIXABAN 5 MG TABLET PO ×2 (09:00→20:54)
--- NOTE | 2020-10-12 10:42 | WPDNEURORHBP ---
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 Patient was up in the attic and was coming down when he missed a rung on the ladder that was present and fell on another ladder lying on the floor. Patient denies any loss of consciousness or striking his head. Patient was brought to [facility] and found to have multiple rib side fractures and a right hemothorax. Patient was transferred to [facility] the same day for further management. Imaging demonstrated acute fractures of the right 3 through 11 ribs, segmental at the 3rd and 6th through 11th ribs, right lower lobe pulmonary contusions, small pulmonary laceration involving the posterior medial right lower lobe and small right hemo thorax. Hospital [facility] Course: PULMONARY patient underwent on 09/26 ORIF of ribs 5 through 10, VATS procedure, right lung decortication, chest tube placement, intubation, aggressive pulmonary toileting. Patient continued to have a small right pleural effusion on repeat chest x-rays. Patient was able to perform 1 L of incentive spirometry on a regular basis. Patient will follow up with trauma nurse practitioner clinic with chest x-ray in approximately 2 weeks. GI: ILEUS: TX: NG tube placement with resolution and Regular diet. BACTEREMIA: blood cx E coli. 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 Patient was started on Lovenox on 10/02/2020 for 3 months. ACUTE DELIRIUM: HEAD CT showed no acute intracranial abnormality. Patient with sleep deprivation and was placed on Seroquel and ramelteon. ACUTE PAIN: Lidocaine patches, Oxycodone, URINARY RETENTION: Sims catheter was removed and patient had issues with urination hesitancy and retention. Patient was placed on Flomax REHAB [facility]OSPITAL COURSE: patient is doing well. Patient still complains of insomnia. Will discontinue Melatonin and add Ambien low dose. Patient reminded to use incentive spirometry every 2 hours while awake 10/11/20 Patient slept better on Ambien low dose. He would like to increase the dose for tonight. Patient is doing better with all therapies. Consider discharge soon 10/12/2020 patient was seen in the physical therapy gym. Patient appeared drowsy. Will discontinue the Ambien. Patient looking forward to discharging tomorrow and feels ready for discharge. Review of Systems Review of Systems: All systems reviewed & are unremarkable except as noted in HPI and below Functional Status Ambulation Ability Ability to Ambulate 10 Feet: Independent Ability to Ambulate 50 Feet With 2 Turns: Independent Ability to Ambulate 150 Feet: Independent Ambulation Assistive Devices: Walker, Wheeled Transfers Ability Ability to Transfer In/Out of Chair: Independent Exam Narrative: Exam Narrative: patient is in no acute distress. Head is normocephalic. Extraocular muscles are intact. Speech is fluent. Heart rate and rhythm is regular. Lungs are decreased in the right base. Abdomen is obese. Bilateral upper extremity strength are 4+ out of 5 bilateral lower extremity strength are 4+ out of 5. Deep tendon reflexes are equal bilaterally being 2/4. Sensation is intact to upper and lower extremities. Patient with limited endurance compounded by pain. Sacral redness is resolving . Incisions and drain sites on chest healing. No drainage. Objective Data Vital Signs Vital Signs: Vital Signs - 24 hr 10/11/20 14:00 10/11/20 22:00 10/12/20 06:00 Temperature 36.5 C 36.3 C L 36.2 C L Pulse Rate 86 80 85 Respiratory Rate 20 18 18 Blood Pressure 96/55 L 136/75 128/74
[2020-10-12 14:00] VITALS: BP 109/69; PULSE 95; RESP 24; TEMP 36.2; O2SAT 97
[2020-10-12] MEDS: TAMSULOSIN HCL 0.4 MG CAPSULE PO (17:39)
[2020-10-12] MEDS: SENNA/DOCUSATE SODIUM TABLET 1 TAB PO (17:39)
[2020-10-12 21:53] VITALS: BP 123/80; PULSE 87; RESP 18; TEMP 36.7; O2SAT 94
[2020-10-13 05:06] LABS: Basophils Absolute Auto 0.1 K/mm3 (0.0-0.1); Basophils Percent Auto 1.4 % (0.2-1.2); Eosinophils Absolute Auto 0.3 K/mm3 (0-0.3); Hematocrit 29.7 % (42.0-52.0); Hemoglobin 9.4 g/dL (14.0-18.0); Immature Granulocyte Absolute 0.08 K/mm3 (0.00-0.031); Immature Granulocyte Percent A 1.3 % (0-0.5); Lymphocytes Absolute Auto 2.18 K/mm3 (0.9-3.2); Lymphocytes Percent Auto 34.5 % (18.3-44.2); Mean Corpuscular HGB Conc 31.6 g/dl (32-36); Mean Corpuscular Hemoglobin 29.6 pg (26-34); Mean Corpuscular Volume 93.4 fl (80-100); Mean Platelet Volume 9.3 fl (7.4-10.4); Monocytes Absolute Auto 0.6 K/mm3 (0.1-0.6); Monocytes Percent Auto 8.7 % (2.6-8.5); Neutrophils Absolute Auto 3.2 K/mm3 (1.3-6.7); Neutrophils Percent Auto 50.1 % (45.5-73.1); Platelet Count Result 214 k/mm3 (150-375); Red Blood Count 3.18 M/mm3 (4.6-6.20); Red Cell Distribution Width 15.8 % (11.5-14.5); White Blood Count 6.3 K/mm3 (4.5-10.0)
[2020-10-13 05:21] LABS: Alanine Aminotransferase 22 U/L (4-50); Albumin Level 3.5 g/dL (3.5-5.1); Alkaline Phosphatase 106 U/L (38-126); Anion Gap 10 mmol/L (8-16); Aspartate Amino Transferase 32 U/L (17-59); Bilirubin,Total 0.3 mg/dL (0.2-1.3); Blood Urea Nitrogen 11 mg/dL (9-20); Calcium 9.3 mg/dL (8.4-10.2); Carbon Dioxide 28 mmol/L (22-30); Chloride 99 mmol/L (98-107); Estimated CRCL calculation 84 ml/min; Estimated Glomerular Filt Rate > 60; Glucose 101 mg/dL (75-110); Potassium 3.8 mmol/L (3.4-5.0); Sodium 137 mmol/L (137-145)
[2020-10-13] MEDS: ACETAMINOPHEN 500 MG TABLET 1000 MG PO (05:41)
[2020-10-13 06:00] VITALS: BP 132/75; PULSE 80; RESP 18; TEMP 36.4; O2SAT 95
[2020-10-13] MEDS: SENNA/DOCUSATE SODIUM TABLET 1 TAB PO (09:06)
[2020-10-13] MEDS: hydroCHLOROthiazide 25 MG TABLET PO (09:06)
[2020-10-13] MEDS: APIXABAN 5 MG TABLET PO (09:06)
[2020-10-13] MEDS: ASPIRIN 81 MG CHEWABLE TABLET PO (09:06)
[2020-10-13] MEDS: PANTOPRAZOLE 40 MG TABLET PO (09:07)
[2020-10-13] MEDS: lisinopriL 20 MG TABLET 40 MG PO (09:07)
[2020-10-13] MEDS: LIDOCAINE 5% PATCH 3 PATCH TOPICAL (09:07)
[2020-10-13] MEDS: THERAPEUTIC MULTIVITAMINS/MINERALS TAB (*BKC) 1 TABLET PO (09:07)
--- NOTE | 2020-10-13 12:47 | PM.DS ---
DS: Admitting Diagnosis Admitting Diagnosis Admitting Diagnosis: fall from ladder sustaining rib fx. DS: Discharge Diagnosis Discharge Diagnosis (1) Left leg DVT: Code(s): I82.402 - Acute embolism and thrombosis of unspecified deep veins of left lower extremity Status: Acute Assessment and Plan: Lovenox 90 mg q.12 hours adjusted for weight. Patient wishes to go home on Eliquis 5 mg b.i.d. (2) History of bacteremia: Code(s): Z87.898 - Personal history of other specified conditions Status: Acute Assessment and Plan: continue to follow (3) History of ileus: Code(s): Z87.19 - Personal history of other diseases of the digestive system Status: Acute Assessment and Plan: continue bowel program (4) Pleural effusion, right: Code(s): J90 - Pleural effusion, not elsewhere classified Status: Acute Assessment and Plan: continue incentive spirometry with baseline chest x-ray obtained (5) Hemothorax, right: Code(s): J94.2 - Hemothorax Status: Acute Assessment and Plan: continue to monitor (6) Right rib fracture: Code(s): S22.31XA - Fracture of one rib, right side, initial encounter for closed fracture Status: Acute Assessment and Plan: ORIF of right ribs secondary to flail chest. (7) Urinary retention: Code(s): R33.9 - Retention of urine, unspecified Status: Acute Assessment and Plan: Flomax (8) TORREZ (nonalcoholic steatohepatitis): Code(s): K75.81 - Nonalcoholic steatohepatitis (TORREZ) Status: Acute Assessment and Plan: monitor (9) Hyperlipidemia: Code(s): E78.5 - Hyperlipidemia, unspecified Status: Acute (10) Hypertension: Code(s): I10 - Essential (primary) hypertension Status: Acute Assessment and Plan: lisinopril 40 mg daily (11) Pulmonary laceration: Code(s): S27.339A - Laceration of lung, unspecified, initial encounter Status: Acute Assessment and Plan: lung decortication, vats procedure (12) Pulmonary contusion: Code(s): S27.329A - Contusion of lung, unspecified, initial encounter Status: Acute Assessment and Plan: monitor (13) Sacral pressure sore: Code(s): L89.159 - Pressure ulcer of sacral region, unspecified stage Status: Acute Assessment and Plan: Add Mepilex. This area was noted on admission. NO open area. (14) Insomnia: Code(s): G47.00 - Insomnia, unspecified Status: Acute Assessment and Plan: Melatonin was ineffective. Will add Ambien and increase dose. Ambien at 5 mg caused morning drowsiness. 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 Patient was up in the attic and was coming down when he missed a rung on the ladder that was present and fell on another ladder lying on the floor. Patient denies any loss of consciousness or striking his head. Patient was brought to [facility] and found to have multiple rib side fractures and a right hemothorax. Patient was transferred to [facility] the same day for further management. Imaging demonstrated acute fractures of the right 3 through 11 ribs, segmental at the 3rd and 6th through 11th ribs, right lower lobe pulmonary contusions, small pulmonary laceration involving the posterior medial right lower lobe and small right hemo thorax. Hospital [facility] Course: PULMONARY patient underwent on 09/26 ORIF of ribs 5 through 10, VATS p
== END 2020-10-13 11:00 | disposition home or self-care (01) | DRG 950 ==
PROVIDERS: Admitting Provider Physical Medicine & Rehabilitation; PCP Family Medicine; Visit Provider Physical Medicine & Rehabilitation
DX: S27.331D Laceration of lung, unilateral, subsequent encounter (principal); S22.5XXD Flail chest, subsequent encounter for fracture with routine healing; S27.1XXD Traumatic hemothorax, subsequent encounter; W11.XXXD Fall on and from ladder, subsequent encounter; E78.5 Hyperlipidemia, unspecified; G47.00 Insomnia, unspecified; I10 Essential (primary) hypertension; I82.562 Chronic embolism and thrombosis of left calf muscular vein; K75.81 Nonalcoholic steatohepatitis (NASH); L89.159 Pressure ulcer of sacral region, unspecified stage; M16.12 Unilateral primary osteoarthritis, left hip; R33.9 Retention of urine, unspecified; Z96.7 Presence of other bone and tendon implants; Z86.73 Personal history of transient ischemic attack (TIA), and cerebral infarction without residual deficits; Z85.828 Personal history of other malignant neoplasm of skin; Z87.891 Personal history of nicotine dependence
CPT/HCPCS: 36415; 71045; 80053; 85025; 97110; 97116; 97161; 97165; 97530; 97535; A9270; J1650